=== PATIENT | female | born 1995 | race Caucasian/White ===

== ENCOUNTER 2016-09-24 10:56 | Inpatient (IN) ==
[2016-09-24] MEDS ORDERED: REGLAN PO ONE (20:44)
[2016-09-24] MEDS ORDERED: PEPCID IV PRN (20:44)
[2016-09-24] MEDS ORDERED: KEFZOL 1 GM/D5W 50 ML IV PRN (20:44)
[2016-09-24] MEDS ORDERED: TYLENOL PO PRN (20:44)
[2016-09-24] MEDS ORDERED: BRETHINE SUBQ PRN (20:44)
[2016-09-24] MEDS ORDERED: ZOFRAN IV PRN (20:44)
[2016-09-24] MEDS ORDERED: STADOL IV PRN ×2 (20:44)
[2016-09-24] MEDS ORDERED: PEPCID PO ONE (20:44)
[2016-09-24] MEDS ORDERED: PEPCID PO PRN (20:44)
[2016-09-24] MEDS: LR 1,000 ML IV SCH (22:41)
[2016-09-24] MEDS ORDERED: CYTOTEC PO ONE (23:00)
[2016-09-24 23:35] LABS: MANUAL DIFF NEEDED? NO
[2016-09-24 23:39] LABS: BASO% 0.1 % (0.0-0.8); EOS# 0.12 X1000 (0.0-0.7); EOS% 0.9 % (0.0-10.0); HEMATOCRIT 36.6 % (37.0-47.0); HEMOGLOBIN 11.9 g/dL (12.0-16.0); IMM GRAN# 0.07 X1000 (0.0-0.04); IMM GRAN% 0.5 % (0.0-0.5); LYMPH# 2.71 X1000 (1.2-3.4); LYMPH% 20.7 % (20.5-51.1); MCH 30.5 PG (27-31); MCHC 32.5 g/dL (33-37); MCV 93.8 FL (81-99); MONO# 0.75 X1000 (0.11-0.59); MONO% 5.7 % (1.7-9.3); MPV 11.5 FL (7.4-10.4); NEUT% 72.1 % (42.2-75.2); PLT 216 X1000 (130-400)
[2016-09-25] MEDS: AMBIEN PO PRN (00:12)
[2016-09-25] MEDS: STADOL IV PRN ×3 (00:30→05:30)
[2016-09-25] MEDS: SODIUM CHLORIDE 0.9% INJ PRN ×2 (00:30→05:31)
[2016-09-25] MEDS: PHENERGAN IV PRN ×2 (00:30→05:31)
[2016-09-25 01:38] LABS: BILIRUBIN URINE NEGATIVE (NEGATIVE); BLOOD URINE NEGATIVE (NEGATIVE); CLARITY CLEAR (CLEAR); COLOR YELLOW; GLUCOSE URINE NEGATIVE (NEGATIVE); LEUKOCYTES URINE NEGATIVE (NEGATIVE); NITRITE URINE NEGATIVE (NEGATIVE); PROTEIN URINE NEGATIVE (NEGATIVE); SP GRAVITY URINE 1.005; UROBILINOGEN URINE NORMAL
[2016-09-25] MEDS: CYTOTEC PO SCH ×2 (03:34→09:16)
[2016-09-25 04:46] LABS: URINE SOURCE VOIDED
[2016-09-25] MEDS: LR 1,000 ML IV SCH ×2 (06:25→08:24)
[2016-09-25] MEDS ORDERED: PITOCIN 30 UNITS/LR 500 ML IV SCH (07:00)
[2016-09-25] MEDS ORDERED: FENTANYL-BUPIV-NS 2 MCG-0.1% 200 ML EPIDURAL PRN (07:17)
[2016-09-25] MEDS ORDERED: MARCAINE 0.25% PF INJ ONE (07:30)
[2016-09-25] MEDS ORDERED: MARCAINE 0.25% PF ONE (08:09)
[2016-09-25] MEDS ORDERED: MINERAL OIL ONE (14:46)
[2016-09-25] MEDS ORDERED: XYLOCAINE-MPF 1% ONE (14:46)
[2016-09-25 18:09] LABS: BE -8.6 mmoll (-3.0-3.0); DRAW SITE UMBILICAL; METHB 1.5 % (0.0-1.5); O2(CT) 12.7 mL/dL (15.0-23.0); SAMPLE BLOOD; SAO2 61.5 % (95.0-100.0); THB 15.2 g/dL (11.5-17.4)
[2016-09-25 18:13] LABS: ALLEN TEST NO; MODALITY ROOM AIR
[2016-09-25 18:15] LABS: BLOOD TYPE CORD BLOOD; pH(98.6) 7.15 (7.35-7.45)
[2016-09-25 18:16] LABS: PCO2(98.6) 61 mmHg (35-45)
[2016-09-25 18:17] LABS: PO2(98.6) 32 mmHg (60-100)
[2016-09-25] MEDS ORDERED: PERCOCET-5 PO PRN (18:17)
[2016-09-25] MEDS ORDERED: HYDROXYZINE PO PRN (18:17)
[2016-09-25] MEDS ORDERED: M-M-R II VACCINE SUBQ ONE (18:17)
[2016-09-25] MEDS ORDERED: BOOSTRIX VACCINE IM ONE (18:17)
[2016-09-25] MEDS ORDERED: HYDROXYZINE IM PRN (18:17)
[2016-09-25] MEDS ORDERED: CYTOTEC PO PRN (18:17)
[2016-09-25] MEDS ORDERED: XYLOCAINE-MPF 1% INJ PRN (18:17)
[2016-09-25] MEDS ORDERED: AMBIEN PO PRN (18:17)
[2016-09-25] MEDS ORDERED: MINERAL OIL MISC PRN (18:17)
[2016-09-25] MEDS ORDERED: BENADRYL PO PRN (18:17)
[2016-09-25] MEDS ORDERED: BENADRYL IV PRN (18:17)
[2016-09-25] MEDS ORDERED: PERI MEDS (DERMOPLAST/NUPERCAINAL/TUCKS) MISC PRN (18:17)
[2016-09-25] MEDS ORDERED: PITOCIN 30 UNITS/LR 500 ML IV ONE (18:17)
[2016-09-25] MEDS ORDERED: PITOCIN IM PRN (18:17)
[2016-09-25] MEDS ORDERED: PITOCIN 20 UNITS/LR 1,000 ML IV SCH (18:30)
[2016-09-25] MEDS: PERCOCET-10 PO PRN ×2 (18:46→22:02)
[2016-09-25] MEDS: MOTRIN PO PRN (18:46)
[2016-09-25] MEDS: PERICOLACE PO SCH (22:01)
[2016-09-26] MEDS: MOTRIN PO PRN ×3 (04:10→20:47)
[2016-09-26] MEDS: PERCOCET-10 PO PRN ×5 (04:11→21:56)
[2016-09-26 07:01] LABS: HEMATOCRIT 28.6 % (37.0-47.0); HEMOGLOBIN 9.1 g/dL (12.0-16.0); MCH 30.2 PG (27-31); MCHC 31.8 g/dL (33-37); MPV 11.6 FL (7.4-10.4); RBC 3.01 XMIL (4.2-5.4)
[2016-09-26] MEDS ORDERED: XANAX PO ONE (20:41)
[2016-09-26] MEDS: PERICOLACE PO SCH (20:43)
[2016-09-26] MEDS: AMBIEN PO PRN (21:55)
[2016-09-27] MEDS: PERCOCET-10 PO PRN ×4 (01:44→11:39)
[2016-09-27] MEDS: MOTRIN PO PRN (04:41)
[2016-09-27 08:39] VITALS: BP 136/79
== END 2016-09-27 12:30 | disposition home or self-care (01) | DRG 775 ==
LOC: P.LD 20:27 → P.WC 09-26 08:06
PROVIDERS: ADMIT Obstetrics & Gynecology; ATTEND Obstetrics & Gynecology
PROC: 10907ZC Drainage of Amniotic Fluid, Therapeutic from Products of Conception, Via Natural or Artificial Opening (ICD-10-PCS; 2016-09-25)
PROC: 0HQ9XZZ Repair Perineum Skin, External Approach (ICD-10-PCS; 2016-09-25)
PROC: 3E033VJ Introduction of Other Hormone into Peripheral Vein, Percutaneous Approach (ICD-10-PCS; 2016-09-25)
PROC: 10E0XZZ Delivery of Products of Conception, External Approach (ICD-10-PCS; principal; 2016-09-25 07:00)
DX: O70.0 First degree perineal laceration during delivery (principal); Z37.0 Single live birth; Z3A.39 39 weeks gestation of pregnancy
CPT/HCPCS: 36415; 59025; 81003; 82805; 85025; 85027; 85461; 86592; 86900; 86901; J0595; J2550; J2590; J7120; S0020

== ENCOUNTER 2016-11-25 04:13 | Emergency (ER) ==
[2016-11-25] MEDS ORDERED: NS 1,000 ML IV ONE (04:15)
[2016-11-25] MEDS ORDERED: M.V.I.-12 10 ML, FOLIC ACID 1 MG, MAGNESIUM SULFATE 1 GM, THIAMINE 100 MG in NS 1,000 ML IV ONE (04:15)
[2016-11-25 04:16] VITALS: BP 100/63
--- NOTE | 2016-11-25 04:16 | PROVIDER DOCUMENTATION ---
[id number] Abuse/Overdose - General Chief Complaint: Intoxicated Stated Complaint: ETOH INTOXICATION Time Seen by Provider: 11/25/16 04:14 Source: patient Allergies/Adverse Reactions: Allergies Allergy/AdvReac Type Severity Reaction Status Date / Time amoxicillin Allergy Mild ITCHING Verified 11/25/16 04:16 Home Medications: Home Medication List Medication Instructions Recorded Confirmed Last Taken Type Pnv Comb.no58/Iron Bisgly/FA 11/25/16 11/25/16 History [ Capsule] - History of Present Illness-Drug/Alcohol This episode of drinking or use began:: unsure Situational problems related to:: reports: parent Psychiatric Complaints: reports: confused, frustrated Associated Symptoms: reports: denies symptoms Any injuries associated with this episode of intoxication?: Yes Similar Symptoms Previously?: Yes Recently seen or treated by another doctor?: Yes - Substance Abuse Substance Use: reports: alcohol, marijuana - Alcohol Abuse Usually drinks:: daily Other alcohols?: reports: N/A - Detox/Hospitalizations Previous detox/rehab admissions?: Yes Currently enrolled in a Methadone Program?: Yes - Overdose Intentional drug overdose?: Yes Suicide Risk Assessment: drug or ETOH abuse Clinician's estimation of suicide risk?: low risk Review of Systems - Adult - REVIEW OF SYSTEMS - ADULT Constitutional: reports: no symptoms reported Eyes: reports: no symptoms reported Ears, Nose, Mouth & Throat: reports: no symptoms reported Cardiovascular: reports: no symptoms reported Respiratory: reports: no symptoms reported Gastrointestinal: reports: no symptoms reported Genitourinary: reports: no symptoms reported Musculoskeletal: reports: no symptoms reported Integumentary: reports: no symptoms reported Neurological: reports: no symptoms reported Psychiatric: reports: no symptoms reported Endocrine: reports: no symptoms reported Hematologic/Lymphatic: reports: no symptoms reported Allergic/Immunologic: reports: no symptoms reported All Other Systems: Reviewed and Negative Past History - Adult - PAST MEDICAL HISTORY-ADULT Review of Records: reports: Old Records Reviewed, Nursing Assessment Review, Medications Reviewed, Social history reviewed & non-contributory. Major Childhood Illnesses: reports: denies history Cardiovascular: reports: HTN (gestational) Respiratory: reports: denies history Gastrointestinal: reports: denies history Obstetrical/Gynecological: reports: denies history Genitourinary: reports: denies history Musculoskeletal: reports: denies history Neurological: reports: denies history Psychiatric: reports: anxiety Endocrine/Immune: reports: denies history Other Conditions: reports: denies history - PRIOR SURGERIES/PROCEDURES Surgical/Procedure History: reports: recent surgery (cholecystectomy Oct 2016), orthopedic (extremity) - PRIOR HOSPITALIZATIONS Prior Hospitalizations: reports: none - IMMUNIZATION STATUS Childhood Immunizations: See Nurse Assessment Flu Vaccine: See Nurse Assessment - FAMILY HISTORY Family History: reviewed, not pertinent Physical Exam-General - PHYSICAL EXAM-ADULT Initial Vital Signs Reviewed: Yes - CONSTITUTIONAL General Appearance: appears well, alert - EYES Eyes: PERRL/EOMI - HEAD, EARS, NOSE, MOUTH & THROAT HENMT: moist mucous membranes - NECK Neck: non-tender - RESPIRATORY Respiratory: no pleuratic chest pain - CARDIOVASCULAR Cardiovascular: normal peripheral pulses - GASTROINTESTINAL (ABDOMEN) Abdominal Exam: normal bowel sounds - LYMPHATIC Lymphatic: no adenopathy, axilla node tender - MUSCULOSKELETAL Extremity: normal inspection - SKIN Integumentary: normal color - 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
[2016-11-25 04:30] LABS: MANUAL DIFF NEEDED? NO
[2016-11-25] MEDS ORDERED: THIAMINE ONE (04:34)
[2016-11-25] MEDS ORDERED: M.V.I.-12 ONE (04:35)
[2016-11-25] MEDS ORDERED: FOLIC ACID ONE (04:35)
[2016-11-25] MEDS ORDERED: MAGNESIUM SULFATE 2 GM/S.W.I. 50 ML ONE (04:35)
[2016-11-25] MEDS ORDERED: NS 1,000 ML ONE (04:35)
[2016-11-25 04:39] LABS: BASO% 0.6 % (0.0-0.8); EOS# 0.49 X1000 (0.0-0.7); EOS% 5.2 % (0.0-10.0); HEMATOCRIT 42.8 % (37.0-47.0); HEMOGLOBIN 13.5 g/dL (12.0-16.0); IMM GRAN# 0.01 X1000 (0.0-0.04); IMM GRAN% 0.1 % (0.0-0.5); LYMPH# 3.57 X1000 (1.2-3.4); LYMPH% 37.8 % (20.5-51.1); MCH 28.4 PG (27-31); MCHC 31.5 g/dL (33-37); MCV 89.9 FL (81-99); MONO# 0.58 X1000 (0.11-0.59); MONO% 6.1 % (1.7-9.3); MPV 10.9 FL (7.4-10.4); NEUT% 50.2 % (42.2-75.2); PLT 281 X1000 (130-400); RBC 4.76 XMIL (4.2-5.4)
[2016-11-25 04:50] LABS: AGAP 16; ALBUMIN 4.7 g/dL (3.5-5.0); ALKALINE PHOSPHATASE 134 U/L (32-104); BUN 11 mg/dL (8-22); CALCIUM 9.2 mg/dL (8.8-10.2); CHLORIDE 112 mmol/L (98-107); COSMO 292; GOT 28 U/L (10-30); GPT 21 U/L (10-36); MAGNESIUM 2.1 mg/dL (1.5-2.7); POTASSIUM 3.5 mmol/L (3.5-5.1); SODIUM 147 mmol/L (136-145); TCO2 19 mmol/L (25-35); TOTAL PROTEIN 7.2 g/dL (6.3-8.3)
== END 2016-11-25 05:39 | disposition home or self-care (01) ==
LOC: P.ED 04:13
DX: F10.129 Alcohol abuse with intoxication, unspecified (principal); R41.0 Disorientation, unspecified
CPT/HCPCS: 80053; 83735; 85025; 96365; G0480; J3411; J3475; J7030; 80320